=== PATIENT | male | born 1960 | race Two or more races ===

== ENCOUNTER 2024-02-12 12:19 | Emergency (ER) | payer OTHER ==
[~2024-02-12] VITALS: Ht 180.3 cm; Wt 81.6 kg
[2024-02-12] MEDS ORDERED: CRESTOR40 MG PO (13:11)
[2024-02-12] MEDS ORDERED: PROTONIX40 MG PO (13:12)
[2024-02-12] MEDS ORDERED: KAPSPARGO SPRIN50 MG PO (13:12)
[2024-02-12] MEDS ORDERED: PROPAFENONE HC300 MG (13:12)
[2024-02-12] MEDS ORDERED: XARELTO20 MG PO (13:13)
[2024-02-12 16:54] LABS: HEMATOCRIT 38.8 % (39.0-48.0); HEMOGLOBIN 13.2 g/dL (13-16.00); MEAN CELL VOLUME 86.5 fL (80.0-100.00); MEAN CORPUSCULAR HEMOGLOBIN 29.4 pg (27.00-32.0); PLATELET COUNT 191 K/uL (150-450); RED BLOOD COUNT 4.48 M/uL (4.00-6.00)
[2024-02-12] MEDS ORDERED: GILTUSS COUGH-118 M1 PO (18:13)
[2024-02-12] MEDS ORDERED: OSEL75CA PO (18:13)
== END 2024-02-12 18:47 | disposition home or self-care (01) ==
LOC: ER 12:21
PROVIDERS: Preventive Medicine Public Health & General Preventive Medicine
DX: J10.1 Influenza due to other identified influenza virus with other respiratory manifestations (principal); I48.91 Unspecified atrial fibrillation; E78.49 Other hyperlipidemia; K44.9 Diaphragmatic hernia without obstruction or gangrene; Z20.822 Contact with and (suspected) exposure to COVID-19